=== PATIENT | female | born 1970 | race African-American/Black ===

== ENCOUNTER 2017-01-11 20:25 | Emergency (ER) | payer OTHER ==
--- NOTE | ~2017-01-11 | CT2 ---
[facility] A Service of [facility] RADIOLOGY TEXT RESULTS PATIENT: AMEYA GARCIA LOCATION: [facility] : 74 UNIT #: [id number] AGE: [address]: Beto Patel MD SEX: F ORDER DR: [id number] [facility] [address] [place], [place] [address] [id number] MR#: [id number] Acc #: [id number] NAME: AMEYA GARCIA : 1970 SEX: F STUDY DATE/TIME: 01/12/2017 1:02 UNIT: [facility] ROOM: STUDY DESCRIPTION: CT Abd and Pelv W Cont Attending Physician: Dante Tracey D.O. Ordering Physician: Dante Tracey D.O. Primary Care Physician: Primary Care Physician No MEDICAL IMAGING REPORT This report is preliminary unless electronic signature is present EXAM CT abdomen and pelvis INDICATION Abdominal pain, nausea, vomiting for [address] of the abdomen and pelvis with p.o. and IV contrast. Coronal and sagittal reconstructions were obtained. This CT exam was performed with one or more of the following radiation dose reduction techniques: automatic exposure control, adjustment of mA and/or kV according to patient size, and iterative reconstruction. COMPARISON None available. FINDINGS ABDOMEN: There is some mild atelectasis in both lung bases. The solid abdominal organs enhance normally. The gallbladder is not distended. The bowel is not dilated. Please note that the appendix is not clearly identified. The abdominal aorta is normal in caliber. No enlarged retroperitoneal or mesenteric lymph nodes. PELVIS: There is a small volume of free fluid the pelvis which is likely physiologic. Uterus and ovaries are within normal limits. Bladder is unremarkable. No enlarged pelvic or inguinal lymph nodes. No acute osseous abnormalities. IMPRESSION 1. Small volume of free fluid the pelvis is likely physiologic. [facility] A Service [facility] RADIOLOGY TEXT RESULTS PATIENT: AMEYA GARCIA LOCATION: [facility] : 74 UNIT #: [id number] AGE: [address]: Beto Patel MD SEX: F ORDER DR: 2. Otherwise no acute findings in the abdomen or pelvis. 3. Please note that the appendix is not clearly identified, however there are no significant inflammatory changes adjacent to the cecum. Dictated by... Selwyn Prather M.D. THIS IS AN ELECTRONICALLY VERIFIED REPORT Selwyn Prather M.D. at 01/12/2017 3:34 AM CHRISTIE/ino TD: 01/12/2017 02:24 JOB #: [id number] MEDICAL IMAGING REPORT Page 1 of 1 COPY
[2017-01-11 21:23] LABS: BASOPHIL% 0.4 % (0-2.5); HEMATOCRIT 38.6 % (35.0-45.0); HEMOGLOBIN 12.6 gm/dL (12.0-16.0); LYMPHOCYTE# 1.2 X10e3 (1.0-3.5); LYMPHOCYTE% 27.6 % (17.0-45.0); MEAN CELL VOLUME 88.8 FL (83-96); MEAN CORPUSCULAR HGB CONC 32.7 g/dL (30-36); MEAN PLATELET VOLUME 7.3 FL (6.5-11.5); MONOCYTE# 0.2 X10e3 (0-1.0); MONOCYTE% 4.7 % (3.0-12.0); NEUTROPHIL# 2.8 X10e3 (1.5-7.1); NEUTROPHIL% 66.3 % (40-75); PLATELET COUNT 264 X10e3 (140-420); RED BLOOD COUNT 4.34 X10e (3.90-5.30); RED CELL DISTRIBUTION WIDTH 13.5 % (11.0-15.5); WHITE BLOOD COUNT 4.3 X10e3 (4.0-10.5)
[2017-01-11 21:24] LABS: DIFF IND NO
[2017-01-11 21:56] LABS: ALBUMIN SERUM 4.6 g/dL (3.5-5.0); BILIRUBIN, DIRECT 0.1 mg/dL (0.0-0.2); BILIRUBIN,INDIRECT 1.1 mg/dL (0.0-0.9); BILIRUBIN,TOTAL 1.2 mg/dL (0.2-2.0); BUN/CREATININE RATIO 23.75; CALCIUM SERUM 9.2 mg/dL (8.4-10.2); CREATININE SERUM 0.8 mg/dL (0.6-1.4); POTASSIUM 3.8 mmol/L (3.5-5.1)
[2017-01-12 01:06] LABS: URINE SOURCE CLEAN CATCH
[2017-01-12 01:10] LABS: URINE APPEARANCE CLEAR; URINE BILIRUBIN NEG (NEG); URINE BLOOD NEG (NEG); URINE COLOR YELLOW; URINE GLUCOSE NEG (NEG); URINE KETONE 3+ (NEG); URINE LEUKOCYTE ESTERASE NEG (NEG); URINE NITRATE NEG (NEG); URINE PROTEIN NEG (NEG); URINE SPECIFIC GRAVITY 1.025 (1.003-1.035); URINE UROBILINOGEN 0.2 MG/DL (NEG)
[2017-01-12 01:16] LABS: CULTURE INDICATED? NO
== END 2017-01-12 03:57 | disposition home or self-care (01) ==
LOC: CED 20:25
PROVIDERS: Emergency Medicine
DX: I95.1 Orthostatic hypotension (principal); R10.9 Unspecified abdominal pain; R11.2 Nausea with vomiting, unspecified; I10 Essential (primary) hypertension; Z88.0 Allergy status to penicillin; Z88.2 Allergy status to sulfonamides
CPT/HCPCS: 36415; 74177; 80048; 80076; 81003; 82150; 83690; 84484; 84703; 85025; 96361; 96374; 96375; 99284; J2405; Q9967

== ENCOUNTER 2017-02-01 13:52 | Emergency (ER) | payer OTHER | END 2017-02-01 14:35 | disposition home or self-care (01) | LOC: CFTX 13:52 → CED 13:52 → CFTX 14:33 | DX: H65.93 Unspecified nonsuppurative otitis media, bilateral (principal); Z88.0 Allergy status to penicillin; Z88.2 Allergy status to sulfonamides | CPT/HCPCS: 99282 ==

== ENCOUNTER → 2017-03-22 | Outpatient (CLI) | payer OTHER ==
--- NOTE | ~2017-03-22 | CT77 ---
[facility] A Service of [facility] & [facility] RADIOLOGY TEXT RESULTS PATIENT: AMEYA GARCIA [facility] : 74 UNIT #: [id number] AGE: [address]: Tc Martin MD SEX: F ORDER DR: [id number] [facility] [address]. [place], [place] [address] [id number] O MR#: [id number] Acc #: [id number] NAME: AMEYA GARCIA : 1970 SEX: F STUDY DATE/TIME: 03/22/2017 14:31 UNIT: [facility] ROOM: STUDY DESCRIPTION: CT IAC, Sella, Temporal Bone W Attending Physician: Tc Martin III, M.D. Referring Physician: Tc Martin III, M.D. Ordering Physician: Tc Martin III, M.D. Primary Care Physician: Rubi Primary Care Physician MEDICAL IMAGING REPORT This report is preliminary unless electronic signature is present EXAM CT of the IAC dated 03/22/2017. COMPARISON CT sinus without contrast dated 03/22/2017. HISTORY Chronic sinusitis, left ear pain and pus for about a month. Not able to hear any more. Mixed type of hearing loss. Patient had conservative treatment. Chronic mastoiditis. Central perforation of the tympanic membrane in the left ear. TECHNIQUE CT of the internal auditory canals was obtained without IV or oral contrast in the axial plane, followed by coronal, Poschl and Stenvers plane reconstructions. This CT exam was performed with one or more of the following radiation dose reduction techniques: automatic exposure control, adjustment of mA and/or kV according to patient size, and iterative reconstruction. FINDINGS Left external auditory canal, left middle ear cavity with the ossicles, left inner ear structures including the cochlea, vestibule and semicircular canals are within normal limits. The left vestibular aqueduct, region of the left endolymphatic sac and course of the left seventh nerve does not demonstrate any significant abnormality. The right external, middle and inner ear structures do not demonstrate any significant abnormality either. Minimal bilateral mastoid mucosal thickening is noted close to the tip. Bilateral internal auditory canals are within normal limits. Paranasal sinuses demonstrate mild left sphenoid and right ethmoid sinus mucosal thickening. Mild spur and cortical changes are noted in the right mandibular condyle at the right temporal mandibular joint. [facility] A Service of [facility] & [facility] RADIOLOGY TEXT RESULTS PATIENT: AMEYA GARCIA LOCATION: [facility] : 74 UNIT #: [id number] AGE: [address]: Tc Martin MD SEX: F ORDER DR: IMPRESSION 1. There is minimal opacification of bilateral mastoid tip air cells. 2. Mild thickening of the left tympanic membrane is noted. No adjacent fluid is noted in the middle ear cavity or the external ear. 3. Inner ear structures are unremarkable. 4. Mild mucosal thickening is noted in the left sphenoid and right mid ethmoid air cells suggestive of mild inflammatory change. Dictated by... Jena Salamanca M.D. THIS IS AN ELECTRONICALLY VERIFIED REPORT Jena Salamanca M.D. at 03/24/2017 4:41 PM CPR/myke TD: 03/23/2017 18:42 JOB #: [id number] MEDICAL IMAGING REPORT Page 1 of 1 COPY
--- NOTE | ~2017-03-22 | CT113 ---
[facility] A Service of [facility] RADIOLOGY TEXT RESULTS PATIENT: AMEYA GARCIA LOCATION: [facility] : 74 UNIT #: [id number] AGE: [address]: Tc Martin MD SEX: F ORDER DR: [id number] [facility] [address] [place], [place] [address] [id number] O MR#: [id number] [facility] #: [id number] NAME: AMEYA GARCIA : 1970 SEX: F STUDY DATE/TIME: 03/22/2017 14:31 UNIT: [facility] ROOM: STUDY DESCRIPTION: CT Sinuses Wo Contrast Attending Physician: Tc Martin III, M.D. Referring Physician: Tc Martin III, M.D. Ordering Physician: Tc Martin III, M.D. Primary Care Physician: Primary Care Physician No MEDICAL IMAGING REPORT This report is preliminary unless electronic signature is present EXAM Sinus CT no contrast 03/22/2017 PROCEDURE Axial unenhanced sinus CT with multiplanar reformats. This CT examination was performed with one or more of the following radiation dose reduction techniques: automatic exposure control, adjustment of mA and/or kV according to patient size, and iterative reconstruction. CLINICAL HISTORY One month history of left-sided pain, hearing loss and purulent drainage. History of chronic sinusitis. FINDINGS The frontal sinuses are normally pneumatized and aerated. The ethmoid air cells are normally pneumatized. There is a single right mid ethmoid air cell that is partially opacified. The right sphenoid chamber is normally pneumatized and aerated and is dominant. The smaller left sphenoid chamber demonstrates mild mucosal thickening. The maxillary sinuses are normally pneumatized. The maxillary infundibula are patent bilaterally. The nasal septum is midline. The adjacent orbital and other intra- and extracranial soft tissues are normal. IMPRESSION Single partially opacified right ethmoid air cell and slight left sphenoid mucosal thickening. [facility] A Service of [facility] RADIOLOGY TEXT RESULTS PATIENT: AMEYA GARCIA LOCATION: [facility] : 74 UNIT #: [id number] AGE: [address]: Tc Martin MD SEX: F ORDER DR: Dictated by... Sung Anderson M.D. THIS IS AN ELECTRONICALLY VERIFIED REPORT Sung Anderson M.D. at 03/23/2017 2:06 PM WILIAM/kellie TD: 03/23/2017 09:23 JOB #: [id number] MEDICAL IMAGING REPORT Page 1 of 1 COPY
== END | disposition home or self-care (01) ==
LOC: CCAT 13:15
DX: H72.02 Central perforation of tympanic membrane, left ear (principal); J32.4 Chronic pansinusitis; J34.89 Other specified disorders of nose and nasal sinuses
CPT/HCPCS: 70480; 70486